=== PATIENT | female | born 1955 ===

== ENCOUNTER 2019-02-08 15:18 | Emergency (ER) | payer SELFPAY ==
[2019-02-08 15:45] VITALS: BP 107/60; PULSE 70; RESP 18; TEMP 98.6; O2SAT 99
--- NOTE | 2019-02-08 16:30 | ED PDOC ---
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 Patient states that for the past week she has had an itchy/sore throat associated with a non- productive cough. Patient denies fever, chills, rash, chest pain, nasal congestion, sick contacts, recent travel and hemoptysis. History obtained using [employer]creation Supervisor #[id number]. PMD: no provider Past Medical History Reviewed: Historical Data, Nursing Documentation, Vital Signs Vital Signs: Last Vital Signs Temp 98.6 F 02/08/19 15:41 Pulse 70 02/08/19 15:41 Resp 18 02/08/19 15:41 BP 107/60 02/08/19 15:41 Pulse Ox 99 02/08/19 15:41 - Medical History PMH: No Chronic Diseases - Family History Family History: States: Unknown Family Hx - Immunization History Hx Tetanus Toxoid Vaccination: No Hx Influenza Vaccination: No Hx Pneumococcal Vaccination: No - Home Medications Home Medications: Ambulatory Orders Medication Instructions Recorded Bismuth Subsalicylate [Pepto 262 mg PO Q4H PRN #30 ctb 12/11/17 Bismol] guaiFENesin/Dextromethorphan 1 tab PO Q12H PRN #20 tab 12/11/17 [guaiFENesin/DM 600-30 mg] Benzonatate [Tessalon Perle] 100 mg PO Q8 PRN #10 capsule 02/08/19 - Allergies Allergies/Adverse Reactions: Allergies Allergy/AdvReac Type Severity Reaction Status Date / Time No Known Allergies Allergy Verified 12/11/17 12:41 Review of Systems ROS Statement: Except As Marked, All Systems Reviewed And Found Negative Constitutional: Negative for: Fever, Chills ENT: Positive for: Throat Pain. Negative for: Nose Congestion Cardiovascular: Negative for: Chest Pain Respiratory: Positive for: Cough. Negative for: Hemoptysis Skin: Negative for: Rash Physical Exam - Reviewed Nursing Documentation Reviewed: Yes Vital Signs Reviewed: Yes - Physical Exam Appears: Positive for: No Acute Distress Skin: Positive for: Normal Color, Warm, Dry Eye Exam: Positive for: Normal appearance, EOMI, PERRL Cardiovascular/Chest: Positive for: Regular Rate, Rhythm. Negative for: Murmur Respiratory: Positive for: Normal Breath Sounds. Negative for: Respiratory Distress Neurological/Psych: Positive for: Awake, Alert, Oriented (x3) - ECG O2 Sat by Pulse Oximetry: 99 (RA) Pulse Ox Interpretation: Normal - Radiology X-Ray: Interpreted by Me (CXR) X-Ray Interpretation: No Acute Disease - Progress ED Course And Treament: Rapid strep: negative Medical Decision Making Medical Decision Making: Scribe Attestation: Documented by Karla Alejandre, acting as a scribe Evelyn Zambrano PA-C. Provider Scribe Attestation: All medical record entries made by the Scribe were at my direction and personally dictated by me. I have reviewed the chart and agree that the record accurately reflects my personal performance of the history, physical exam, medical decision making, and the department course for this patient. I have also personally directed, reviewed, and agree with the discharge instructions and disposition. Disposition - Clinical Impression Clinical Impression: URI (upper respiratory infection) - Patient ED Disposition Is Patient to be Admitted: No - Disposition Referrals: [facility] [Outside] Disposition: Routine/Home Disposition Time: 17:45 Condition: IMPROVED Additional Instructions: AUBRIE MARTINEZ, thank you for letting us take care of you today. Your provider was Vance Hutchinson MD and you were treated for THROAT PAIN. The emergency medical care you received today was directed at your acute symptoms. If you were prescribed any medication, please fill it and take as directed. It may take several days for your symptoms to resolve. Return to the Emergency Department if your symptoms worsen, do not improve, or if you have any other problems. Please contact your doctor or call one of the physicians/clinics you have been referred to that are listed on the Patient Visit Information form that is included in your discharge packet. Bring any paperwork you were given at discharge with you along with any medications you are taking to your follow up visit. Our treatment cannot replace ongoing medical care by a primary care provider outside of the emergency department. Thank you for allowing the [facility] team to be part of your care today. If you had an X-Ray or CT scan: A Radiologist will review the ED reading if any change in treatment is needed we will contact you. If you had a blood, urine, or wound culture: It will take several days for the results, if any change in treatment is needed we will contact you. If you had an STI test: It will take 48 hours for the results. Please call after 1 week if you have not heard back. Prescriptions: Benzonatate [Tessalon Perle] 100 mg PO Q8 PRN #10 capsule PRN Reason: Cough Instructions: Viral Upper Respiratory Infection, Adult (DC) Forms: [employer] (Ukrainian) Print Language: K[place]I
--- NOTE | 2019-02-08 18:19 | RAD ---
Date of service: 02/08/2019 HISTORY: cough COMPARISON: No prior. TECHNIQUE: Chest PA and lateral views FINDINGS: LUNGS: No active pulmonary disease. PLEURA: No significant pleural effusion identified. No pneumothorax apparent. CARDIOVASCULAR: Aortic atherosclerotic calcifications. Cardiomediastinal silhouette within normal limits. OSSEOUS STRUCTURES: Mild degenerative changes. VISUALIZED UPPER ABDOMEN: Right upper quadrant surgical clips. OTHER FINDINGS: None. IMPRESSION: No active disease.
== END 2019-02-08 18:39 | disposition home or self-care (01) ==
LOC: H.ER 15:18
DX: J06.9 Acute upper respiratory infection, unspecified (principal)

== ENCOUNTER 2019-03-20 13:16 | Emergency (ER) | payer SELFPAY ==
[2019-03-20 13:22] VITALS: RESP 16; TEMP 98.7
--- NOTE | 2019-03-20 15:21 | ED PDOC ---
Upper Extremity Pain/Injury Time Seen by Provider: 03/20/19 13:29 Chief Complaint (Nursing): Upper Extremity Problem/Injury Chief Complaint (Provider): Right Sided Upper Back Pain History Per: Patient History/Exam Limitations: no limitations Onset/Duration Of Symptoms: Days Additional Complaint(s): 64 year old female with history of breast cancer 17 years ago treated with resection and radiation presents to ED with right sided upper back pain. Patient states she has had right sided upper back pain intermittently for past 2 months. She notes pain carrying bag on right side and pain is alleviated when bag is removed. Patient has not taken any medication as pain is always self alleviated but is concerned that it may be coming from lungs, as per history of breast cancer. She denies any unintentional weight loss, fever, chills, SOB, or chest pain. Currently states she has no pain PMD: Martínez Villanueva Past Medical History Reviewed: Historical Data, Nursing Documentation, Vital Signs Vital Signs: Last Vital Signs Temp 98.7 F 03/20/19 13:22 Pulse 76 03/20/19 13:22 Resp 16 03/20/19 13:22 BP 156/79 H 03/20/19 13:22 Pulse Ox 97 03/20/19 13:22 Primary Care Provider: FAMILY PROVIDER,NO - Family History Family History: States: Unknown Family Hx - Social History Current smoker - smoking cessation education provided: No Alcohol: None Drugs: Denies - Immunization History Hx Tetanus Toxoid Vaccination: No Hx Influenza Vaccination: No Hx Pneumococcal Vaccination: No - Home Medications Home Medications: Ambulatory Orders Medication Instructions Recorded Bismuth Subsalicylate [Pepto 262 mg PO Q4H PRN #30 ctb 12/11/17 Bismol] guaiFENesin/Dextromethorphan 1 tab PO Q12H PRN #20 tab 12/11/17 [guaiFENesin/DM 600-30 mg] Benzonatate [Tessalon Perle] 100 mg PO Q8 PRN #10 capsule 02/08/19 Ibuprofen [Ibu] 400 mg PO Q6 PRN 7 Days tablet 03/20/19 - Allergies Allergies/Adverse Reactions: Allergies Allergy/AdvReac Type Severity Reaction Status Date / Time No Known Allergies Allergy Verified 03/20/19 13:21 Review of Systems ROS Statement: Except As Marked, All Systems Reviewed And Found Negative Constitutional: Negative for: Fever, Chills, Weight loss (unintentional) Cardiovascular: Negative for: Chest Pain Respiratory: Negative for: Shortness of Breath Musculoskeletal: Positive for: Back Pain (right sided upper, intermittent, no pain currently) Physical Exam - Reviewed Nursing Documentation Reviewed: Yes Vital Signs Reviewed: Yes - Physical Exam Appears: Positive for: Well Neck: Positive for: Normal, Painless ROM, Supple Cardiovascular/Chest: Positive for: Regular Rate, Rhythm. Negative for: Murmur Respiratory: Positive for: Normal Breath Sounds. Negative for: Wheezing Back: Positive for: R CVA Tenderness (mild tenderness on palpation of right upper back), Other (no erythema, ecchymosis or swelling). Negative for: Decreased ROM (full ROM with flexion, extension, abduction of right shoulder ) Neurological/Psych: Positive for: Awake, Alert, Oriented (x3) - ECG O2 Sat by Pulse Oximetry: 97 (RA) Pulse Ox Interpretation: Normal Medical Decision Making Medical Decision Making: Time: 1500 Initial Impression: Initial Plan: --Chest Xray 1515 Patient notified that Chest Xray is unremarkable and advised to take Ibuprofen or Tylenol when pain occurs and follow up with her PMD for routine medical care. CXR demonstrates no acute fracture or abnormality. Patient is medically stable and ready for discharge. Scribe Attestation: Documented by Enrrique Miller, acting as a scribe for Patricia Burleson PA-C Provider Scribe Attestation: All medical record entries made by the Scribe were at my direction and personally dictated by me. I have reviewed the chart and agree that the record accurately reflects my personal performance of the history, physical exam, medical decision making, and the department course for this patient. I have also personally directed, reviewed, and agree with the discharge instructions and disposition. Disposition - Clinical Impression Clinical Impression: Upper back pain - Disposition Disposition: Routine/Home Disposition Time: 15:20 Condition: STABLE Additional Instructions: Take Ibuprofen or Tylenol if pain recurs. Follow up for routine medical care with primary care doctor. Prescriptions: Ibuprofen [Ibu] 400 mg PO Q6 PRN 7 Days tablet PRN Reason: Pain, Moderate (4-7) Instructions: Upper Back Pain (DC) Forms: [employer] (Citizen Of [place]) Print Language: SAMI
[2019-03-20 15:40] VITALS: BP 137/84; PULSE 72
--- NOTE | 2019-03-20 15:44 | RAD ---
Date of service: 03/20/2019 HISTORY: Shortness of breath and cough. COMPARISON: Comparison chest dated 02/08/2019. TECHNIQUE: Chest PA and lateral views FINDINGS: LUNGS: The interstitial markings are slightly increased and coarsened; findings may represent sequela of reactive/inflammatory airway disease or viral illness. PLEURA: No significant pleural effusion identified. No pneumothorax apparent. CARDIOVASCULAR: No aortic atherosclerotic calcification present. Normal cardiac size. No pulmonary vascular congestion. OSSEOUS STRUCTURES: No significant abnormalities. VISUALIZED UPPER ABDOMEN: Normal. OTHER FINDINGS: None. IMPRESSION: The interstitial markings are slightly increased and coarsened; findings may represent sequela of reactive/inflammatory airway disease or viral illness.
[2019-03-21 00:40] VITALS: O2SAT 97
== END 2019-03-20 15:39 | disposition home or self-care (01) ==
LOC: H.ER 13:16
DX: M54.9 Dorsalgia, unspecified (principal)